=== PATIENT | male | born 2000 | race African-American/Black ===

== ENCOUNTER 2020-06-14 21:12 | Emergency (ER) | payer OTHER ==
[~2020-06-14] VITALS: Ht 226.1 cm; Wt 77.1 kg
[2020-06-14 21:15] VITALS: BP 105/67
[2020-06-14 21:35] LABS: URINE BILIRUBIN 1+ (Negative); URINE BLOOD NEGATIVE (Negative); URINE CLARITY CLEAR; URINE COLOR YELLOW; URINE GLUCOSE-RANDOM* NEGATIVE (Negative); URINE KETONES NEGATIVE (Negative); URINE LEUKOCYTES-REFLEX NEGATIVE (Negative); URINE NITRITE-REFLEX NEGATIVE (Negative); URINE PROTEIN (DIPSTICK) NEGATIVE (Negative); URINE SPECIFIC GRAVITY >= 1.030 (1.005-1.035)
[2020-06-14] MEDS ORDERED: FLAGYL500 M1 PO (21:40)
== END 2020-06-14 21:52 | disposition home or self-care (01) ==
LOC: ER 21:12
PROVIDERS: Physician Assistant
DX: A64 Unspecified sexually transmitted disease (principal)